=== PATIENT | female | born 1990 | race American Indian/Alaskan Native ===

== ENCOUNTER 2017-12-28 13:03 | Emergency (ER) | payer OTHER ==
[2017-12-28] MEDS ORDERED: TORADOL IV ONE (16:01)
[2017-12-28] MEDS ORDERED: CATAPRES PO ONE (16:01)
[2017-12-28] MEDS ORDERED: REGLAN IV ONE (16:01)
[2017-12-28] MEDS ORDERED: BENADRYL IV ONE (16:01)
--- NOTE | 2017-12-28 16:04 | Emergency Department Report ---
Blank Doc - Documentation Documentation: 27-year-old female presents to the hospital with 2 complaints. Initial complaint was dysuria 2 weeks. Blood also in the urine. Denies fever. Patient has had a frontal headache behind her eyes the last several hours. Pain is 10/10 in intensity, constant, aggravated by light. Positive nausea. No vomiting, focal weakness, or focal numbness. Denies history of migraines or chronic headaches. History of hypertension during her one year ago but patient has not followed up with a physician for reevaluation. Patient has checked her blood pressure intermittently and states it has remained high. UA and urine pending CBC, BMP, blood Accu-Chek ordered Hypertension: Clonidine 0.1 mg Headache treatment: IV Toradol, Reglan, Benadryl CT head ordered
[2017-12-28 16:12] LABS: Bilirubin,Urine NEG (Negative); Blood,Urine SM (Negative); Color,Urine Yellow (Yellow); Mucus,Urine 2+ /HPF; Urobilinogen,Urine < 2.0 mg/dL (<2.0)
[2017-12-28 16:32] LABS: HCG Qualitative,Urine Negative (Negative)
[2017-12-28 16:44] LABS: Basophils % (Auto) 0.5 % (0.0-1.8); Eosinophils # (Auto) 0.2 K/mm3 (0.0-0.4); Eosinophils % (Auto) 3.3 % (0.0-4.3); Hematocrit 40.4 % (30.3-42.9); Hemoglobin 13.6 gm/dl (10.1-14.3); Lymphocytes # (Auto) 2.5 K/mm3 (1.2-5.4); Lymphocytes % (Auto) 43.2 % (13.4-35.0); Mean Corpuscular HGB Conc 34 % (30-34); Mean Corpuscular Hemoglobin 30 pg (28-32); Mean Corpuscular Volume 88 fl (79-97); Monocytes # (Auto) 0.5 K/mm3 (0.0-0.8); Platelet Count 193 K/mm3 (140-440); Red Blood Count 4.61 M/mm3 (3.65-5.03); Red Cell Distribution Width 13.4 % (13.2-15.2)
[2017-12-28 16:53] LABS: BUN/Creatinine Ratio 14; Blood Urea Nitrogen 11 mg/dL (7-17); Calcium 9.1 mg/dL (8.4-10.2); Hemolysis Index 8
--- NOTE | 2017-12-28 17:18 | Cat Scan Report ---
FINAL REPORT EXAM: CT HEAD/BRAIN WO CON HISTORY: spivey, light sensitivity, htn TECHNIQUE: CT head without contrast PRIORS: None. FINDINGS: No acute intra-axial or extra-axial hemorrhage is identified. There is no evidence of midline shift or mass effect. The ventricles and sulci are within normal limits. Patel-white matter differentiation is intact. No acute parenchymal abnormalities seen. Bony calvarium is grossly intact. Noted is a mucous retention cyst or polyp in the visualized left maxillary sinus IMPRESSION: Mucous retention cyst or polyp in the maxillary sinus No acute intracranial findings
--- NOTE | 2017-12-28 17:55 | Emergency Department Report ---
ED Headache HPI - General Chief Complaint: Abdominal Pain Stated Complaint: UTI SX/HEADACHE Time Seen by Provider: 12/28/17 15:56 - History of Present Illness Initial Comments: This is a 27-year-old female nontoxic, well nourished in appearance, no acute signs of distress presents to the ED with c/o of frontal headache x1 day. Patient describes headache as aching primarly frontal area and behind the eye. Patient denies thunderclap headache. Patient stated symptoms are worsening with bright lights and relieved with darkness. Patient denies any stiff neck, nausea , vomiting, chest pain, shortness of breathe, fever, chills, numbness, tingling. Patient denies any abdominal or back pain. Patient also is c/o of dysuria and hematuria x2 weeks. Patient denies any vaginal bleeding or vaginal discharge. Patient denies any head trauma. Patient denies any drug allergies. PMH includes HTN but denies taking any medications. Timing/Duration: episodic Quality: mild Head Injury Location: frontal Recent Head Trauma: no recent headache/trauma, occasional headaches Associated Symptoms: denies symptoms. denies: confusion, fatigue, facial pain, fever/chills, flushing, loss of consciousness, nausea/vomiting, nasal congestion , nasal drainage, numbness in legs/feet, rash, seizures, sinus infection, stiff neck, vision changes, weakness Allergies/Adverse Reactions: Allergies peanut Adverse Reaction (Verified 12/28/17 13:12) Swelling raisin Allergy (Uncoded 12/28/17 13:12) Hives seafood Adverse Reaction (Uncoded 12/28/17 13:12) Swelling Home Medications: Ambulatory Orders Butalb/Acetamin/Caff 50-325-40 [Fioricet] 1 tab PO Q6HR PRN #15 tab 12/28/17 Sulfamethoxazole/Trimethoprim [Bactrim DS TAB] 1 each PO BID #14 tablet amLODIPine [Norvasc] 5 mg PO DAILY #30 tab 12/28/17 ED Review of Systems ROS: Stated complaint: UTI SX/HEADACHE Other details as noted in HPI Constitutional: denies: chills, fever Eyes: denies: eye pain, eye discharge, vision change ENT: denies: ear pain, throat pain Respiratory: denies: cough, shortness of breath, wheezing Cardiovascular: denies: chest pain, palpitations Endocrine: no symptoms reported Gastrointestinal: denies: abdominal pain, nausea, diarrhea Genitourinary: dysuria, hematuria. denies: urgency, discharge Musculoskeletal: denies: back pain, joint swelling, arthralgia Skin: denies: rash, lesions Neurological: headache. denies: weakness, paresthesias Psychiatric: denies: anxiety, depression Hematological/Lymphatic: denies: easy bleeding, easy bruising ED Past Medical Hx - Past Medical History Hx Hypertension: Yes (with preg) Hx Diabetes: Yes (with preg) - Surgical History Additional Surgical History: c sect x 3, d.n.c - Social History Smoking Status: Current Every Day Smoker Substance Use Type: Marijuana - Medications Home Medications: Home Medications Medication Instructions Recorded Confirmed Last Taken Type Butalb/Acetamin/Caff 50-325-40 1 tab PO Q6HR PRN #15 tab 12/28/17 Unknown Rx [Fioricet] Sulfamethoxazole/Trimethoprim 1 each PO BID #14 tablet 12/28/17 Unknown Rx [Bactrim DS TAB] amLODIPine [Norvasc] 5 mg PO DAILY #30 tab 12/28/17 Unknown Rx ED Physical Exam - General Limitations: No Limitations General appearance: alert, in no apparent distress - Head Head exam: Present: atraumatic, normocephalic - Eye Eye exam: Present: normal appearance Pupils: Present: normal accommodation - ENT ENT exam: Present: normal exam, normal orophraynx, mucous membranes moist, TM's normal bilaterally, normal external ear exam - Neck Neck exam: Present: normal inspection, full ROM. Absent: tenderness, meningismus, lymphadenopathy, thyromegaly - Respiratory Respiratory exam: Present: normal lung sounds bilaterally. Absent: respiratory distress, wheezes, rales, rhonchi, stridor - Cardiovascular Cardiovascular Exam: Present: regular rate, normal rhythm, normal heart sounds. Absent: bradycardia, tachycardia, irregular rhythm, systolic murmur, diastolic murmur, rubs, gallop - GI/Abdominal GI/Abdominal exam: Present: soft, normal bowel sounds. Absent: distended, tenderness, guarding, rebound, rigid, diminished bowel sounds - Rectal Rectal exam: Present: deferred - Extremities Exam Extremities exam: Present: normal inspection, full ROM, normal capillary refill. Absent: tenderness - Back Exam Back exam: Present: normal inspection, full ROM. Absent: tenderness, CVA tenderness (R), CVA tenderness (L), muscle spasm, paraspinal tenderness, vertebral tenderness, rash noted - Neurological Exam Neurological exam: Present: alert, oriented X3, CN II-XII intact, normal gait - Expanded Neurological Exam Expanded Patient oriented to: Present: person, place, time Cranial nerves: Gag Reflex: Normal, Facial Sensation: Normal, Facial Palsy with Forehead Movement: Normal, Facial Palsy without Forehead Movement: Normal Cerebellar function: Finger to Nose: Normal Upper motor neuron: Pronator Drift: Normal, Sensory Extinction: Normal Sensory exam: Upper Extremity Light Touch: Normal, Upper Extremity Pin Prick: Normal, Upper Extremity Temperature: Normal, UE 2 Point Discrimination: Normal, Lower Extremity Light Touch: Normal, Lower Extremity Pin Prick: Normal, Lower Extremity Temperature: Normal, LE 2 Point Discrimination: Normal Motor strength exam: RUE: 5, LUE: 5, RLE: 5, LLE: 5 Best Eye Response (Treynor): (4) open spontaneously Best Motor Response (Treynor): (6) obeys commands Best Verbal Response (Treynor): (5) oriented Eliz Total: 15 - Psychiatric Psychiatric exam: Present: normal affect, normal mood - Skin Skin exam: Present: warm, dry, intact, normal color. Absent: rash ED Course Vital Signs 12/28/17 12/28/17 13:12 14:43 Temperature 98.7 F Pulse Rate 70 Respiratory 17 Rate Blood Pressure 171/108 Blood Pressure 192/126 [Right] O2 Sat by Pulse 99 Oximetry - Reevaluation(s) Reevaluation #1: 12/28/17 17:56 Patient is speaking in full sentences with no signs of distress noted. Reevaluation #2: 12/28/17 17:57 Patient stated headache has resolved and subsided after treatment. - Consultations Consultation #1: 12/28/17 17:56 Patient has been consulted with Dr. Pichardo about patient history, physical exam, and labs and examined and screened patient and agrees to ED plan of care and discharge plan of care. ED Medical Decision Making - Lab Data Result diagrams: 12/28/17 16:04 12/28/17 16:04 - Medical Decision Making This is a 27-year-old female that presents with UTI and headache and HTN. PAtient is stable and was examined by me and Dr. Pichardo. Patient is neurologically stable. A/O x3. CT of head obtained and dictated by the radiologist within normal limits. Labs within normal limits. Patient notified of the CT report with No questions noted by the patient. Patient received catapres and B/P decrased. I will start patient on Norvasc and instructed to keep a daily diary of blood pressure and present it to the provider. UA indicates any UTI, patient be treated with Bactrim at discharged. Patient also received Fioricet at discharge. Patient stated the symptoms has resolved subsided after medical treatment in the ED. Patient was referred to Follow-up with a primary care doctor in 3-5 days or if symptoms worsen and continue return to emergency room as soon as possible. At time of discharge, the patient does not seem toxic or ill in appearance. No acute signs of distress noted. Patient agrees to discharge treatment plan of care. No further questions noted by the patient. Critical care attestation.: If time is entered above; I have spent that time in minutes in the direct care of this critically ill patient, excluding procedure time. ED Disposition Clinical Impression: UTI (urinary tract infection) Qualifiers: Urinary tract infection type: site unspecified Hematuria presence: with hematuria Qualified Code(s): N39.0 - Urinary tract infection, site not specified ; R31.9 - Hematuria, unspecified Headache Qualifiers: Headache type: unspecified Headache chronicity pattern: acute headache Intractability: not intractable Qualified Code(s): R51 - Headache Hypertension Qualifiers: Hypertension type: unspecified Qualified Code(s): I10 - Essential (primary) hypertension Disposition: TO HOME OR SELFCARE Is pt being admited?: No Does the pt Need Aspirin: No Condition: Stable Instructions: Acute Headache (ED), Urinary Tract Infection in Women (ED), Hypertension (ED) Additional Instructions: Follow-up with a primary care doctor in 3-5 days or if symptoms worsen and continue return to emergency room as soon as possible. Keep a daily dairy of your blood pressure and present it to your primary care doctor. Prescriptions: amLODIPine [Norvasc] 5 mg PO DAILY #30 tab Butalb/Acetamin/Caff 50-325-40 [Fioricet] 1 tab PO Q6HR PRN #15 tab PRN Reason: Headache Sulfamethoxazole/Trimethoprim [Bactrim DS TAB] 1 each PO BID #14 tablet Referrals: PRIMARY CARE, [Primary Care Provider] - 3-5 Days CARROLL RODRIGUEZ MD [Staff Physician] - 3-[address] [facility] [Outside] - 3-5 Days [facility] [Outside] - 3-5 Days Forms: Work/School Release Form(ED)
[2017-12-28 18:46] VITALS: BP 144/99
== END 2017-12-28 18:56 | disposition home or self-care (01) ==
LOC: ED 13:03
DX: N39.0 Urinary tract infection, site not specified (principal); R51 Headache; I10 Essential (primary) hypertension; E11.9 Type 2 diabetes mellitus without complications; F17.200 Nicotine dependence, unspecified, uncomplicated; F12.10 Cannabis abuse, uncomplicated
CPT/HCPCS: 36415; 70450; 80048; 81001; 81025; 85025; 96374; 96375; 99284; J1200; J1885; J2765

== ENCOUNTER 2018-04-20 15:37 | Emergency (ER) | payer OTHER ==
[2018-04-20 15:48] VITALS: BP 156/98
[2018-04-20] MEDS ORDERED: MOTRIN PO ONE (17:56)
[2018-04-20 18:20] LABS: Bilirubin,Urine NEG (Negative); Blood,Urine NEG (Negative); Color,Urine Yellow (Yellow); Mucus,Urine 2+ /HPF; Urobilinogen,Urine < 2.0 mg/dL (<2.0)
[2018-04-20 18:21] LABS: HCG Qualitative,Urine Negative (Negative)
--- NOTE | 2018-04-20 19:10 | XRay Report ---
FINAL REPORT EXAM: XR KNEE 3V LT HISTORY: knee pain TECHNIQUE: Frontal, lateral, oblique views left knee Comparison: None FINDINGS: There is no evidence of fracture or subluxation. The joint spaces are maintained. The soft tissues are unremarkable. IMPRESSION: 1. No plain film evidence of bony or soft tissue abnormality.
--- NOTE | 2018-04-20 19:15 | XRay Report ---
FINAL REPORT EXAM: XR ANKLE 3+V LT HISTORY: ankle pain TECHNIQUE: Frontal, lateral, mortise views left ankle Comparison: X-ray left foot also performed today FINDINGS: There is no evidence of fracture, subluxation, lytic or blastic change or periosteal reaction. The mortise joint is maintained. There is soft tissue swelling at the level of the ankle. There a plantar calcaneal spur. IMPRESSION: 1. Soft tissue swelling without plain film evidence of bony abnormality.
--- NOTE | 2018-04-20 19:17 | XRay Report ---
FINAL REPORT EXAM: XR FOOT 3+V LT HISTORY: foot pain TECHNIQUE: Frontal, lateral, oblique views left foot Comparison: X-ray left ankle also performed today FINDINGS: There is no evidence of fracture, subluxation, lytic or blastic change or periosteal reaction. The joint spaces are maintained. There is diffuse soft tissue swelling of the foot. There is a plantar calcaneal spur. IMPRESSION: 1. Soft tissue swelling without evidence of bony abnormality. 2. Plantar calcaneal spur.
--- NOTE | 2018-04-20 19:20 | Emergency Department Report ---
ED Lower Extremity HPI - General Chief Complaint: Extremity Injury, Lower Stated Complaint: PAIN IN FOOT/KNEE Time Seen by Provider: 04/20/18 17:50 Source: patient Mode of arrival: Ambulatory Limitations: No Limitations - History of Present Illness Initial Comments: This is a 27-year-old female nontoxic, well nourished in appearance, no acute signs of distress presents to the ED with c/o of left knee and left foot pain 1 day. 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 Patient denies any trauma. Patient denies any numbness, tingling, fever, chills, nausea, vomiting, chest pain, shortness of breath, headache, stiff neck. Patient denies any joint swelling or joint redness. Patient denies decreased range of motion. Patient stated has decreased gait due to pain. Patient denies any allergies. PMH includes HTN and DM. MD Complaint: knee injury, foot injury -: days(s) (1) Injury: Knee: Left, Foot: Left Place: work Severity: mild Severity scale (0 -10): 3 Improves With: immobilization Worsens With: weight bearing, movement, palpation Associated Symptoms: able to partially bear weight, ambulatory. denies: snap/ pop sensation, swelling, numbness, tingling, unable to bear weight - Related Data Previous Rx's Medication Instructions Recorded Last Taken Type Butalb/Acetamin/Caff 50-325-40 1 tab PO Q6HR PRN #15 tab 12/28/17 Unknown Rx [Fioricet] Sulfamethoxazole/Trimethoprim 1 each PO BID #14 tablet 12/28/17 Unknown Rx [Bactrim DS TAB] amLODIPine [Norvasc] 5 mg PO DAILY #30 tab 12/28/17 Unknown Rx Ibuprofen [Motrin] 600 mg PO Q8H PRN #30 tablet 04/20/18 Unknown Rx Allergies Allergy/AdvReac Type Severity Reaction Status Date / Time peanut AdvReac Swelling Verified 12/28/17 13:12 raisin Allergy Hives Uncoded 12/28/17 13:12 seafood AdvReac Swelling Uncoded 12/28/17 13:12 ED Review of Systems ROS: Stated complaint: PAIN IN FOOT/KNEE Other details as noted in HPI Constitutional: denies: chills, fever Eyes: denies: eye pain, eye discharge, vision change ENT: denies: ear pain, throat pain Respiratory: denies: cough, shortness of breath, wheezing Cardiovascular: denies: chest pain, palpitations Endocrine: no symptoms reported Gastrointestinal: denies: abdominal pain, nausea, diarrhea Genitourinary: denies: urgency, dysuria, discharge Musculoskeletal: arthralgia. denies: back pain, joint swelling Skin: denies: rash, lesions Neurological: denies: headache, weakness, paresthesias Psychiatric: denies: anxiety, depression Hematological/Lymphatic: denies: easy bleeding, easy bruising ED Past Medical Hx - Past Medical History Previous Medical History?: Yes Hx Hypertension: Yes (with preg) Hx Diabetes: Yes (with preg) - Surgical History Past Surgical History?: Yes Additional Surgical History: c sect x 3, d.n.c - Social History Smoking Status: Current Every Day Smoker Substance Use Type: Marijuana - Medications Home Medications: Home Medications Medication Instructions Recorded Confirmed Last Taken Type Butalb/Acetamin/Caff 50-325-40 1 tab PO Q6HR PRN #15 tab 12/28/17 Unknown Rx [Fioricet] Sulfamethoxazole/Trimethoprim 1 each PO BID #14 tablet 12/28/17 Unknown Rx [Bactrim DS TAB] amLODIPine [Norvasc] 5 mg PO DAILY #30 tab 12/28/17 Unknown Rx Ibuprofen [Motrin] 600 mg PO Q8H PRN #30 tablet 04/20/18 Unknown Rx ED Physical Exam - General Limitations: No Limitations General appearance: alert, in no apparent distress - Head Head exam: Present: atraumatic, normocephalic - Eye Eye exam: Present: normal appearance Pupils: Present: normal accommodation - ENT ENT exam: Present: normal exam, mucous membranes moist - Neck Neck exam: Present: normal inspection - Respiratory Respiratory exam: Present: normal lung sounds bilaterally. Absent: respiratory distress - Cardiovascular Cardiovascular Exam: Present: regular rate, normal rhythm. Absent: systolic murmur, diastolic murmur, rubs, gallop - GI/Abdominal GI/Abdominal exam: Present: soft, normal bowel sounds - Extremities Exam Extremities exam: Present: normal inspection, full ROM, tenderness, normal capillary refill. Absent: joint swelling - Expanded Lower Extremity Exam Left Hip exam: Present: normal inspection, full ROM. Absent: tenderness, swelling Upper Leg exam: Present: normal inspection, full ROM. Absent: tenderness, swelling Knee exam: Present: normal inspection, full ROM, full knee extension. Absent: tenderness, swelling, abrasion, laceration, ecchymosis, deformity, crepidus, dislocation, erythema, effusion, pain w/ pronation/supination, posterior draw sign, pain/laxity with valgus, pain/laxity with varus Lower Leg exam: Present: normal inspection, full ROM. Absent: tenderness, swelling, Nena's sign Ankle exam: Present: normal inspection, full ROM, tenderness, swelling. Absent : abrasion, laceration, ecchymosis, deformity, crepidus, dislocation, erythema, anterior draw sign Foot/Toe exam: Present: normal inspection, full ROM, tenderness, swelling. Absent: abrasion, laceration, ecchymosis, deformity, crepidus, dislocation, erythema, amputation, puncture wound, foreign body, calcaneal tenderness, tenderness at base of 5th metatarsal, nail avulsion, subungual hematoma Neuro vascular tendon exam: Present: no vascular compromise. Absent: pulse deficit, abnormal cap refill, motor deficit, sensory deficit, tendon deficit, extremity cold to touch, pallor, abnormal 2-point discrimination, decreased fine /light touch, foot drop, peroneal nerve deficit, significant pain with passive ROM of distal joint Gait: Positive: observed and limited by pain - Back Exam Back exam: Present: normal inspection, full ROM - Neurological Exam Neurological exam: Present: alert, oriented X3, normal gait - Psychiatric Psychiatric exam: Present: normal affect, normal mood - Skin Skin exam: Present: warm, dry, intact, normal color. Absent: rash ED Course Vital Signs 04/20/18 15:42 Temperature 98.8 F Pulse Rate 69 Respiratory 18 Rate Blood Pressure 156/98 O2 Sat by Pulse 99 Oximetry - Reevaluation(s) Reevaluation #1: 04/20/18 19:22 Patient is speaking in full sentences with no signs of distress noted. ED Lower Extremity MDM - Medical Decision Making This is a 27-year-old female that presents with right knee and ankle strain. Patient is stable and was examined by me. I referred patient to an orthopedic doctor for further evaluation for possible MRI. X-ray has been obtained and dictated by the radiologist. Patient is notified of the x-ray report with noted by the patient. Patient does have normal gait with no tenderness and no joint swelling. No ecchymosis. no joint redness or swelling. Not warm to touch. No signs of cellulites present. Patient received a ankle immobilizer and crutches and was educated by RN how to use crutches. Patient was instructed to RICE therapy. Patient received Motrin for pain. Patient is discharged with Motrin. At time of discharge, the patient does not seem toxic or ill in appearance. No acute signs of distress noted. Patient agrees to discharge treatment plan of care. No further questions noted by the patient. Critical care attestation.: If time is entered above; I have spent that time in minutes in the direct care of this critically ill patient, excluding procedure time. ED Disposition Clinical Impression: Left ankle sprain Qualifiers: Encounter type: initial encounter Involved ligament of ankle: unspecified ligament Qualified Code(s): S93.402A - Sprain of unspecified ligament of left ankle, initial encounter Strain of left knee Qualifiers: Encounter type: initial encounter Qualified Code(s): S86.912A - Strain of unspecified muscle(s) and tendon(s) at lower leg level, left leg, initial encounter Disposition: TO HOME OR SELFCARE Is pt being admited?: No Does the pt Need Aspirin: No Condition: Stable Instructions: Ankle Sprain (ED), Ankle Stirrup Splint (ED), Crutch Instructions (ED) Additional Instructions: Follow-up with a orthopedic doctor in 3-5 days or if symptoms worsen and continue return to emergency room as soon as possible. Prescriptions: Ibuprofen [Motrin] 600 mg PO Q8H PRN #30 tablet PRN Reason: Pain Referrals: MARK GROVES MD [Primary Care Provider] - 3-5 Days PRIMARY CARE, [Referring] - 3-5 Days JERONIMO FRAZIER MD [Staff Physician] - 3-5 Days [facility] [Outside] - 3-5 Days Forms: Work/School Release Form(ED)
== END 2018-04-20 20:15 | disposition home or self-care (01) ==
LOC: ED 15:37
DX: S93.402A Sprain of unspecified ligament of left ankle, initial encounter (principal); S86.912A Strain of unspecified muscle(s) and tendon(s) at lower leg level, left leg, initial encounter; F17.200 Nicotine dependence, unspecified, uncomplicated; F12.90 Cannabis use, unspecified, uncomplicated; Z91.010 Allergy to peanuts; Z91.013 Allergy to seafood; Z91.018 Allergy to other foods; Z79.899 Other long term (current) drug therapy; X58.XXXA Exposure to other specified factors, initial encounter; Y93.89 Activity, other specified; Y99.8 Other external cause status; Y92.69 Other specified industrial and construction area as the place of occurrence of the external cause
CPT/HCPCS: 81001; 81025

== ENCOUNTER 2018-06-23 22:32 | Emergency (ER) | payer OTHER ==
[2018-06-23] MEDS ORDERED: TYLENOL #3 ONE (23:16)
[2018-06-23] MEDS ORDERED: TYLENOL #3 PO ONE (23:22)
[2018-06-23 23:41] LABS: Basophils # (Auto) 0.1 K/mm3 (0.0-0.1); Basophils % (Auto) 0.7 % (0.0-1.8); Eosinophils # (Auto) 0.2 K/mm3 (0.0-0.4); Eosinophils % (Auto) 2.5 % (0.0-4.3); Hematocrit 38.5 % (30.3-42.9); Hemoglobin 13.2 gm/dl (10.1-14.3); Lymphocytes # (Auto) 2.6 K/mm3 (1.2-5.4); Lymphocytes % (Auto) 26.1 % (13.4-35.0); Mean Corpuscular HGB Conc 34 % (30-34); Mean Corpuscular Hemoglobin 31 pg (28-32); Mean Corpuscular Volume 90 fl (79-97); Monocytes % (Auto) 9.9 % (0.0-7.3); Platelet Count 214 K/mm3 (140-440); Red Blood Count 4.28 M/mm3 (3.65-5.03); Red Cell Distribution Width 13.9 % (13.2-15.2)
[2018-06-23 23:55] LABS: BUN/Creatinine Ratio 8; Blood Urea Nitrogen 5 mg/dL (7-17); Calcium 9.3 mg/dL (8.4-10.2); Hemolysis Index 7
[2018-06-24] MEDS ORDERED: NACL 0.9% 1000 ML 1,000 ML IV ONE (02:31)
[2018-06-24] MEDS ORDERED: REGLAN IV ONE (02:31)
--- NOTE | 2018-06-24 02:31 | Emergency Department Report ---
HPI - General Chief Complaint: Abdominal Pain Time Seen by Provider: 06/24/18 01:58 - HPI HPI: 28-year-old female presents to the emergency department with a complaint of a two-day history of a migraine headache and questionably a sinus headache with some sinus pressure. She has a history of migraines but the patient is currently and has not been able to take some of her usual migraine medications. She has some sensitivity to light. She denies any actual vision change, slurred speech or any neurological deficits. Because of her headache, she has been laying and trying to sleep in a dark room and says that she has not been eating or drinking much recently. She believes that because of this that she started to have some abdominal cramping. It feels muscular to her so she has tried to stretch out. She denies any vaginal bleeding, dysuria, vaginal discharge. She goes to [facility]. ED Past Medical Hx - Past Medical History Previous Medical History?: Yes Hx Hypertension: Yes (with preg) Hx Diabetes: Yes (with preg) - Surgical History Past Surgical History?: Yes Additional Surgical History: c sect x 3, d.n.c - Social History Smoking Status: Never Smoker Substance Use Type: None - Medications Home Medications: Home Medications Medication Instructions Recorded Confirmed Last Taken Type Labetalol [Normodyne TAB] 100 mg PO BID 06/24/18 06/24/18 06/23/18 History Metoclopramide [Reglan] 10 mg PO TID PRN #16 tab 06/24/18 Unknown Rx ED Review of Systems ROS: Stated complaint: 11WKS W/CRAMPING AND MIGRAINES Other details as noted in HPI Comment: All other systems reviewed and negative Constitutional: denies: chills, fever Eyes: other (photophobia). denies: eye pain, eye discharge ENT: denies: ear pain, throat pain Respiratory: denies: cough, shortness of breath, wheezing Cardiovascular: denies: chest pain, palpitations Gastrointestinal: abdominal pain (cramping), nausea. denies: vomiting Genitourinary: denies: dysuria, discharge Musculoskeletal: denies: back pain, arthralgia Skin: denies: rash, lesions Neurological: headache. denies: weakness, numbness Physical Exam - Physical Exam Vital Signs: Vital Signs 06/23/18 06/23/1818 22:55 23:35 00:35 Temperature 98.5 F Pulse Rate 72 Respiratory 18 18 18 Rate Blood Pressure 147/102 O2 Sat by Pulse 100 Oximetry Physical Exam: GENERAL: Well nourished. Well developed. HENT: Normocephalic. Atraumatic. Patient has moist mucous membranes. EYES: Extraocular motions are intact. Pupils are equal and reactive bilaterally. NECK: Supple. Trachea is midline. CHEST/LUNGS: Clear to auscultation. There is no respiratory distress noted. HEART/CARDIOVASCULAR: Regular. There is moderate tachycardia. There is no murmur. ABDOMEN: Abdomen is soft, nontender. Patient has normal bowel sounds. There is no abdominal distention. SKIN: Skin is warm and dry. NEURO: Patient is awake, alert and oriented. The patient is cooperative. No focal, motor or sensory deficits. Cranial nerves II through XII grossly intact. MUSCULOSKELETAL: There is no tenderness or deformity. No restriction to range of motion. There is no evidence of acute injury. ED Course Vital Signs 06/23/18 06/23/18 06/24/18 22:55 23:35 00:35 Temperature 98.5 F Pulse Rate 72 Respiratory 18 18 18 Rate Blood Pressure 147/102 O2 Sat by Pulse 100 Oximetry ED Medical Decision Making - Lab Data Result diagrams: 06/23/18 23:30 06/23/18 23:30 - Radiology Data Radiology results: report reviewed EXAM: US OB lt; = 14 WEEKS FETUS HISTORY: lower abd/pelvic pain TECHNIQUE: Transabdominal imaging was obtained the pelvis including Doppler interrogation of the uterus and adnexa. FINDINGS: The uterus is anteverted measuring 14.9 cm x 6.9 cm x 10.9 cm. Within the uterus is a well-formed gestational sac which contains a pole. The crown-rump length corresponds to a 12 week 3 day IUP. The heart rate is normal at 142 BPM. Free fluid is not identified. Both ovaries are normal size contour blood flow and echotexture. The right ovary measures 2.4 cm x 1.6 cm x 1.8 cm. The left ovary measures 3.3 cm x 2 cm x 3.3 cm. IMPRESSION: Single viable IUP, 12 weeks 3 days. The heart rate is 142 BPM. Normal-appearing ovaries. No evidence of ovarian torsion. No evidence of free fluid Transcribed By: RB Dictated By: JERONIMO MEYERS MD Electronically Authenticated By: JERONIMO MEYERS MD Signed Date/Time: 06/24/18 0230 - Medical Decision Making This is a 28-year-old female who is about 12 weeks who presents with a 2 day history of a headache as well as some abdominal and generalized cramping. The patient does have a history of migraines but she also has some sinus pressure. She does not have any focal, motor or sensory deficits in her cranial nerves are intact. She had been given a Tylenol 3 through triage by a different physician. Since I have seen the patient in the emergency department , I gave her IV fluid resuscitation, Reglan and magnesium. On reevaluation she says she is feeling greatly improved. Since the patient has a history of migraine headaches and does not have any focal deficits, I did not feel that the patient required CT imaging of the head at this time. She does have a history of preeclampsia during past pregnancies. The rest of her labs have been unremarkable. There is no lower extremity swelling. Vital signs and stable throughout her ED course including being afebrile. She has labetalol to control her blood pressure. She appears safe for discharge home at this time. She will follow up with her [facility] in the next few days and will return to the ER with any worsening of her symptoms or any acute distress. I believe a lot of the patient issues this time are related to dehydration. She had a beta hCG of about 90,000. Transvaginal/obstetric ultrasound shows a live intrauterine at about 12 weeks without any obvious complications. - Differential Diagnosis migraine headache, tension headache, sinus headache, preeclampsia Critical Care Time: No Critical care attestation.: If time is entered above; I have spent that time in minutes in the direct care of this critically ill patient, excluding procedure time. ED Disposition Clinical Impression: Abdominal cramping, Sinus pressure Qualifiers: Weeks of gestation: 12 weeks Qualified Code(s): Z3A.12 - 12 weeks gestation of Headache Qualifiers: Headache type: unspecified Headache chronicity pattern: unspecified pattern Intractability: not intractable Qualified Code(s): R51 - Headache Disposition: DC-01 TO HOME OR SELFCARE Is pt being admited?: No Condition: Stable Instructions: (ED), Migraine Headache (ED), Acute Headache (ED), Abdominal Pain (ED), Abdominal Pain in (ED) Additional Instructions: Please follow-up with your [facility] in the next few days. Return to the emergency Department with any worsening of your symptoms or any acute distress. Increase your oral rehydration. Continue taking your vitamin. Prescriptions: Metoclopramide [Reglan] 10 mg PO TID PRN #16 tab PRN Reason: Nausea Referrals: [facility] [Provider Group] - 2-3 Days PRIMARY CARE, [Primary Care Provider] - 2-3 Days Time of Disposition: 04:39
[2018-06-24] MEDS ORDERED: MAGNESIUM SULFATE 1 GM in NACL 0.9% 50 ML IV ONE (03:36)
[2018-06-24 04:51] VITALS: BP 137/75
== END 2018-06-24 05:19 | disposition home or self-care (01) ==
LOC: ED 22:32
DX: O26.891 Other specified pregnancy related conditions, first trimester (principal); R51 Headache; R10.9 Unspecified abdominal pain; E11.9 Type 2 diabetes mellitus without complications; I10 Essential (primary) hypertension; Z91.010 Allergy to peanuts; Z3A.12 12 weeks gestation of pregnancy; Z91.018 Allergy to other foods; Z91.013 Allergy to seafood
CPT/HCPCS: 36415; 76801; 80048; 84702; 85025; 96365; 96375; 99284; J2765; J3475; J7030